=== PATIENT | female | born 1955 | race Caucasian/White ===

== ENCOUNTER 2024-03-15 20:09 | Emergency (ER) | payer OTHER, MEDICAID ==
[~2024-03-15] VITALS: Ht 149.9 cm; Wt 90.0 kg
[2024-03-15 20:15] VITALS: O2SAT 96
[2024-03-15 20:46] LABS: HEMOGLOBIN. 13.7 g/dL (12.0-16.0); MEAN CORPUSCULAR HEMOGLOBIN 28.5 pg (28.0-32.0); MEAN CORPUSCULAR HGB CONC 32.6 g/dL (31.0-37.0); MEAN CORPUSCULAR VOLUME 87.3 fL (81.0-99.0); MEAN PLATELET VOLUME 7.3 fl (7.4-10.4); PLATELET 227 x1000/uL (130-400); RED BLOOD CELL COUNT 4.81 mill/uL (4.2-5.4); RED CELL DISTRIBUTION WIDTH 14.6 % (11.6-14.6); WHITE BLOOD COUNT 19.9 x1000/uL (4.5-11.0)
[2024-03-15 20:49] LABS: CARBON DIOXIDE 30 mEq/L (21-32); CHLORIDE 110 mEq/L (98-107); DIFFERENTIAL COMMENT 1; POTASSIUM 3.7 mEq/L (3.5-5.1); SODIUM 144 mEq/L (136-145)
[2024-03-15 20:50] LABS: CALCIUM 9.1 mg/dL (8.7-10.4)
[2024-03-15 20:53] LABS: D-DIMER 0.55 mg/L FEU (<0.50); INR 0.9; PARTIAL THROMBOPLASTIN TIME 28.2 sec (23.4-31.0); PROTHROMBIN TIME 10.5 sec (9.6-11.0)
[2024-03-15 20:54] LABS: CREATININE 0.9 mg/dL (0.6-1.0); GLUCOSE 96 mg/dL (70-105)
[2024-03-15 20:55] LABS: UREA NITROGEN BLOOD 13 mg/dL (9-23)
[2024-03-15 21:02] LABS: ETHANOL BLOOD < 10 mg/dL (<10); TROPONIN I HIGH SENSITIVITY < 4 ng/L (3.0-34)
[2024-03-15 21:15] LABS: PLATELET ESTIMATE NORMAL
[2024-03-15] MEDS ORDERED: HYDRALAZINE 20MG/ML VIAL IV ONE (21:30)
[2024-03-15 23:10] LABS: TROPONIN I HIGH SENSITIVITY < 4 ng/L (3.0-34)
[2024-03-15 23:22] VITALS: BP 154/84; PULSE 73; RESP 19; TEMP 36.89184; O2SAT 95
== END 2024-03-15 23:55 | disposition short-term general hospital (02) ==
LOC: ER 20:23 → EDBD 20:23 → ER 23:55
DX: R07.89 Other chest pain (principal); I10 Essential (primary) hypertension; Z98.890 Other specified postprocedural states
CPT/HCPCS: 36415; 71045; 80048; 80320; 83880; 84484; 85025; 85379; 93005; 99285; G0480